=== PATIENT | female | born 2000 | race Two or more races ===

== ENCOUNTER → 2021-09-07 | Outpatient (CLI) | payer OTHER ==
--- NOTE | 2021-09-07 10:52 | KCIC ---
EXAM: Chest, 2 views. HISTORY: Tuberculosis exposure. COMPARISON: None. FINDINGS: 2 views of the chest are obtained. There is no infiltrate, pleural effusion or pneumothorax . The heart is normal in size. IMPRESSION: No acute pulmonary finding or evidence of pulmonary tuberculosis. Electronically signed by: Bev Dewitt MD (09/07/2021 10:50 AM) [id number]
== END ==
LOC: KCIC 10:27
PROVIDERS: ATTEND Internal Medicine Pulmonary Disease
DX: Z20.1 Contact with and (suspected) exposure to tuberculosis (principal)
CPT/HCPCS: 71046